=== PATIENT | female | born 1995 | race Caucasian/White ===

== ENCOUNTER 2016-09-25 21:23 | Emergency (ER) | payer MEDICAID ==
--- NOTE | 2016-09-25 22:34 | ER Document Report ---
ED Medical Screen (RME) - General Chief Complaint: Vaginal Itching Stated Complaint: URINARY SYMPTOMS Notes: 20 year old female, c/o vaginal burning and pelvic discomfort for a few days, having unprotected intercourse, denies fever/chills, no N/V. LMP a few days ago. TRAVEL OUTSIDE OF THE [place] IN LAST 30 DAYS: No - Related Data Allergies/Adverse Reactions: No Known Allergies Allergy (Verified 11/25/15 21:24) Past Medical History - Immunizations Hx Diphtheria, Pertussis, Tetanus Vaccination: Yes Physical Exam - Vital signs Vitals: Temp Pulse Resp BP Pulse Ox 97.6 F 74 16 119/56 L 100 09/25/16 22:08 09/25/16 22:08 09/25/16 22:08 09/25/16 22:08 09/25/16 22:08 - General General appearance: Appears well In distress: None Course - Vital Signs Vital signs: Temp Pulse Resp BP Pulse Ox 97.6 F 74 16 119/56 L 100 09/25/16 22:08 09/25/16 22:08 09/25/16 22:08 09/25/16 22:08 09/25/16 22:08
[2016-09-26 00:29] LABS: APPEARANCE,URINE CLOUDY; BILIRUBIN,URINE NEGATIVE (NEGATIVE); GLUCOSE, URINE NEGATIVE (NEGATIVE); KETONES,URINE NEGATIVE (NEGATIVE); LEUKOCYTE ESTERASE,URINE LARGE (NEGATIVE); NITRITE,URINE NEGATIVE (NEGATIVE); PROTEIN,URINE 30 mg/dL (NEGATIVE); URINE SPECIFIC GRAVITY 1.008; UROBILINOGEN,URINE NEGATIVE mg/dL (<2.0)
--- NOTE | 2016-09-26 02:29 | ER Document Report ---
ED GI/ - General Chief Complaint: Vaginal Itching Stated Complaint: URINARY SYMPTOMS Time seen by provider: 02:20 Notes: Patient is a 20 year old female that comes emergency department with chief complaint of vaginal burning and pelvic discomfort for a few days, she is having unprotected intercourse, denies fever/chills, no N/V. LMP a few days ago. She denies any daily medications or medical problems. TRAVEL OUTSIDE OF THE [place] IN LAST 30 DAYS: No - Related Data Allergies/Adverse Reactions: No Known Allergies Allergy (Verified 09/26/16 02:24) Past Medical History - General Information source: Patient - Social History Smoking Status: Never Smoker Frequency of alcohol use: None Drug Abuse: None Lives with: Spouse/Significant other Family History: None - Medical History Medical History: Negative Renal/ Medical History: Denies: Hx Peritoneal Dialysis Surgical Hx: Negative - Immunizations Hx Diphtheria, Pertussis, Tetanus Vaccination: Yes Review of Systems - Review of Systems Constitutional: No symptoms reported EENT: No symptoms reported Cardiovascular: No symptoms reported Respiratory: No symptoms reported Gastrointestinal: See HPI Genitourinary: See HPI Female Genitourinary: See HPI Musculoskeletal: No symptoms reported Skin: No symptoms reported Hematologic/Lymphatic: No symptoms reported Neurological/Psychological: No symptoms reported Physical Exam - Vital signs Vitals: Temp Pulse Resp BP Pulse Ox 97.6 F 74 16 119/56 L 100 09/25/16 22:08 09/25/16 22:08 09/25/16 22:08 09/25/16 22:08 09/25/16 22:08 Interpretation: Normal - General General appearance: Appears well, Alert In distress: None - HEENT Head: Normocephalic, Atraumatic Eyes: Normal Cornea: Normal Extraocular movements intact: Yes Eyelashes: Normal Pupils: PERRL Nasal: Normal Mouth/Lips: Normal Mucous membranes: Normal Pharynx: Normal Neck: Normal - Respiratory Respiratory status: No respiratory distress Chest status: Nontender Breath sounds: Normal Chest palpation: Normal - Cardiovascular Rhythm: Regular Heart sounds: Normal auscultation Murmur: No - Abdominal Inspection: Normal Distension: No distension Bowel sounds: Normal Tenderness: Nontender. No: Tender, Guarding Organomegaly: No organomegaly - Genitourinary Speculum exam: Cervix closed, Vaginal discharge - Small amount of whitish discharge. No: Cervix open Vaginal bleeding: Mild Bimanuel exam: Normal - Back Back: Normal, Nontender - Extremities General upper extremity: Normal inspection, Nontender, Normal color, Normal ROM , Normal temperature General lower extremity: Normal inspection, Nontender, Normal color, Normal ROM , Normal temperature, Normal weight bearing. No: Olivier's sign - Neurological Neuro grossly intact: Yes Cognition: Normal Orientation: AAOx4 [place] Coma Scale Eye Opening: Spontaneous [place] Coma Scale Verbal: Oriented [place] Coma Scale Motor: Obeys Commands Kimmy Coma Scale Total: 15 Speech: Normal Motor strength normal: LUE, RUE, LLE, RLE Sensory: Normal - Psychological Associated symptoms: Normal affect, Normal mood - Skin Skin Temperature: Warm Skin Moisture: Dry Skin Color: Normal Course - Re-evaluation Re-evalutation: Urine contaminated and nonspecific. HCG is negative. Pelvic exam negative Trichomonas, negative yeast, white blood cells, bacteria, blood. Patient has some discharge and some bleeding on exam, no concerning abnormalities otherwise noted. Discussed with patient, she is requesting to leave pending gonorrhea and Chlamydia, giving Rocephin and azithromycin now, treating for UTI and bacterial vaginosis at home. Called patient at [phone] as requested, informed patient that she has positive STD results, patient has already been covered for this, I did discuss with patient that although she has been treated her partner will also need to be treated. - Vital Signs Vital signs: Temp Pulse Resp BP Pulse Ox 97.5 F 66 18 104/62 100 09/26/16 02:55 09/26/16 02:55 09/26/16 02:55 09/26/16 02:55 09/26/16 02:55 - Laboratory Laboratory results interpreted by me: 09/26/16 09/26/16 00:06 02:20 Urine Protein 30 H Urine Blood LARGE H Ur Leukocyte Esterase LARGE H Chlamydia DNA (PCR) DETECTED H Discharge - Discharge Clinical Impression: Vaginal irritation, Dysuria Condition: Stable Disposition: HOME, SELF-CARE Additional Instructions: Examination and workup shows bacterial vaginosis, you have also been treated for pelvic infection. Take Flagyl for bacterial vaginosis, take Keflex antibiotic for urinary tract infection. Return to emergency department for any concerning or worsening symptoms including pain, fever, vomiting, etc. Prescriptions: Cephalexin Monohydrate [Keflex 500 mg Capsule] 500 mg PO BID #10 capsule Metronidazole [Flagyl 500 mg Tablet] 500 mg PO BID #14 tablet Forms: Return to Work Referrals: MERLINE DEJESUS MD [Primary Care Provider] - Follow up as needed
[2016-09-26 03:04] VITALS: BP 104/62
[2016-09-26] MEDS ORDERED: AZITHROMYCIN 250 MG TABLET PO ONE (03:04)
[2016-09-26] MEDS ORDERED: CEFTRIAXONE INJ 250 MG VIAL IM ONE (03:04)
[2016-09-26] MEDS ORDERED: LIDOCAINE 1% INJ-PF (10 MG/ML) 30 ML SDV INFIL ONE (03:04)
[2016-09-26 04:20] LABS: CHLAM PCR DETECTED (NOT DETECT)
== END 2016-09-26 03:20 | disposition home or self-care (01) ==
LOC: ER 21:23
DX: A64 Unspecified sexually transmitted disease (principal); N89.8 Other specified noninflammatory disorders of vagina; R30.0 Dysuria
CPT/HCPCS: 99283; 96372; 87210; 81025; 81001; 87491; 87591; Q0144; J3490; J0696

== ENCOUNTER 2016-10-04 15:56 | Emergency (ER) | payer MEDICAID ==
[2016-10-04 16:04] VITALS: BP 121/70
--- NOTE | 2016-10-04 16:08 | ER Document Report ---
ED Medical Screen (RME) - General Stated Complaint: VAGINAL PROBLEM Notes: 20 yo female c/o vaginal bleeding. recently treated for Chlamydia. concerned she may still have chlamydia. completed antibiotic. not sexually active with that partner. TRAVEL OUTSIDE OF THE [place] IN LAST 30 DAYS: No - Related Data Allergies/Adverse Reactions: No Known Allergies Allergy (Verified 10/04/16 16:05) Past Medical History Endocrine Medical History: Reports: Hx Diabetes Mellitus Type 2 - possible Renal/ Medical History: Denies: Hx Peritoneal Dialysis - Immunizations Hx Diphtheria, Pertussis, Tetanus Vaccination: Yes Physical Exam - Vital signs Vitals: Temp Pulse Resp BP Pulse Ox 97.4 F 75 16 121/70 100 10/04/16 16:02 10/04/16 16:02 10/04/16 16:02 10/04/16 16:02 10/04/16 16:02 Course - Vital Signs Vital signs: Temp Pulse Resp BP Pulse Ox 97.4 F 75 16 121/70 100 10/04/16 16:02 10/04/16 16:02 10/04/16 16:02 10/04/16 16:02 10/04/16 16:02
[2016-10-04 17:50] LABS: CHLAM PCR NOT DETECTED (NOT DETECT)
--- NOTE | 2016-10-04 20:18 | ER Document Report ---
ED General - General Chief Complaint: STD Exposure Stated Complaint: VAGINAL PROBLEM Notes: Patient is a 20-year-old female recently diagnosed with chlamydia after receiving appropriate treatment who presents with concerns that the quality infection may not have cleared. He denies any ongoing dysuria, abdominal pain or flank pain. States that her symptoms resolved 48 hours after receiving antibiotic treatment and have not recurred. States that she is here because she wants to be sure that the infection is gone away. TRAVEL OUTSIDE OF THE [place] IN LAST 30 DAYS: No - Related Data Allergies/Adverse Reactions: No Known Allergies Allergy (Verified 10/04/16 16:05) Home Medications: Current Home Medications No Home Medications 10/04/16 [History] Past Medical History - General Information source: Patient - Social History Smoking Status: Never Smoker Chew tobacco use (# tins/day): No Frequency of alcohol use: None Drug Abuse: None Lives with: Family Family History: Reviewed & Not Pertinent Patient has suicidal ideation: No Patient has homicidal ideation: No Endocrine Medical History: Reports: Hx Diabetes Mellitus Type 2 - possible Renal/ Medical History: Denies: Hx Peritoneal Dialysis - Immunizations Hx Diphtheria, Pertussis, Tetanus Vaccination: Yes Review of Systems - Review of Systems Notes: Constitutional: Negative for fever. HENT: Negative for sore throat. Eyes: Negative for visual changes. Cardiovascular: Negative for chest pain. Respiratory: Negative for shortness of breath. Gastrointestinal: Negative for abdominal pain, vomiting or diarrhea. Genitourinary: Negative for dysuria. Musculoskeletal: Negative for back pain. Skin: Negative for rash. Neurological: Negative for headaches, weakness or numbness. 10 point ROS negative except as marked above and in HPI. Physical Exam - Vital signs Vitals: Temp Pulse Resp BP Pulse Ox 97.4 F 75 16 121/70 100 10/04/16 16:02 10/04/16 16:02 10/04/16 16:02 10/04/16 16:02 10/04/16 16:02 Interpretation: Normal Notes: PHYSICAL EXAMINATION: GENERAL: Well-appearing, well-nourished and in no acute distress. HEAD: Atraumatic, normocephalic. EYES: Pupils equal round and reactive to light, extraocular movements intact, sclera anicteric, conjunctiva are normal. ENT: nares patent, oropharynx clear without exudates. Moist mucous membranes. NECK: Normal range of motion, supple without lymphadenopathy LUNGS: Breath sounds clear to auscultation bilaterally and equal. No wheezes rales or rhonchi. HEART: Regular rate and rhythm without murmurs ABDOMEN: Soft, nontender, normoactive bowel sounds. No guarding, no rebound. No masses appreciated. EXTREMITIES: Normal range of motion, no pitting or edema. No cyanosis. NEUROLOGICAL: No focal neurological deficits. Moves all extremities spontaneously and on command. PSYCH: Normal mood, normal affect. SKIN: Warm, Dry, normal turgor, no rashes or lesions noted. Course - Re-evaluation Re-evalutation: 10/04/16 20:19 Patient presents for concerns of possible ongoing chlamydia infection despite being treated. Her chlamydia screen is negative. She denies any flank pain, dysuria, vaginal bleeding or discharge. I do not suspect an acute left any pathology at this time and she admits that she is strictly here for STD testing. At this time will discharge with return precautions and follow-up recommendations. Verbal discharge instructions given a the bedside and opportunity for questions given. Medication warnings reviewed. Patient is in agreement with this plan and has verbalized understanding of return precautions and the need for primary care follow-up in the next 24-72 hours. - Vital Signs Vital signs: Temp Pulse Resp BP Pulse Ox 97.4 F 75 16 121/70 100 10/04/16 16:02 10/04/16 16:02 10/04/16 16:02 10/04/16 16:02 10/04/16 16:02 Discharge - Discharge Clinical Impression: STD exposure Condition: Good Disposition: HOME, SELF-CARE Additional Instructions: You need to use protection every time you have sex. Failure to do so can result in transmission of infections or unintended . Your chlamydia screen is negative today. All of your partners should be tested and treated as they are also likely to be infected. Please return if you develop abdominal pain, fever, persistent vomiting, or any other symptoms that are concerning to you. Please follow-up at the local health department for STI testing it is free and the same testing we use here. The emergency department is not the appropriate place to come for sexual transmitted infection testing. Address: [address] [place] [address] Hours: Sun-Sun 8am-4pm Thurs 12p-4p Sun 8a-4p
== END 2016-10-04 20:37 | disposition home or self-care (01) ==
LOC: ER 15:56
DX: Z20.2 Contact with and (suspected) exposure to infections with a predominantly sexual mode of transmission (principal)
CPT/HCPCS: 87491; 87591; 99283

== ENCOUNTER 2017-03-09 23:14 | Emergency (ER) | payer SELFPAY ==
--- NOTE | 2017-03-10 00:06 | ER Document Report ---
ED GI/ - General Chief Complaint: Nausea Stated Complaint: NAUSEA Time Seen by Provider: 03/09/17 23:52 Mode of Arrival: Ambulatory Information source: Patient Notes: 21-year-old female presents to ED for nausea with no vomiting 1 week. She states that her she is about a week late for her menstrual cycle. She states her last menstrual cycle was 02/05/2017 and has had several negative test at home but would like to be rechecked. States she had a little bit of pelvic pain with nausea. TRAVEL OUTSIDE OF THE [place] IN LAST 30 DAYS: No - HPI Patient complains to provider of: Pelvic pain. No: Vomiting Onset: Last week Timing/Duration: Intermittent Quality of pain: Cramping Severity at maximum: Moderate Severity in ED: None Pain Level: Denies Location: Pelvis Vaginal bleeding (Compared to normal period): None LMP: 02/05/2017 Associated symptoms: Nausea. denies: Vomiting Exacerbated by: Denies Relieved by: Denies Similar symptoms previously: Yes Recently seen / treated by doctor: No - Related Data Allergies/Adverse Reactions: No Known Allergies Allergy (Verified 10/04/16 16:05) Past Medical History - General Information source: Patient - Social History Smoking Status: Current Every Day Smoker Cigarette use (# per day): Yes - Pack per day Chew tobacco use (# tins/day): No Smoking Education Provided: Yes - Less than 2 minutes Frequency of alcohol use: Social - States she was drinking every week but has not drank since the middle of January Drug Abuse: None Occupation: state patrol officer Lives with: Spouse/Significant other Family History: CAD, COPD, CVA, DM, Hyperlipidemia, Hypertension, Malignancy. denies: Thyroid Disfunction Patient has suicidal ideation: No Patient has homicidal ideation: No - Past Medical History Cardiac Medical History: Reports: None Pulmonary Medical History: Reports: None EENT Medical History: Reports: None Neurological Medical History: Reports: None Endocrine Medical History: Reports: Hx Diabetes Mellitus Type 2 - possible Renal/ Medical History: Reports: None Malignancy Medical History: Reports: None GI Medical History: Reports: None Musculoskeltal Medical History: Reports None Skin Medical History: Reports None Psychiatric Medical History: Reports: None Traumatic Medical History: Reports: None Infectious Medical History: Reports: None Surgical Hx: Negative Past Surgical History: Reports: None - Immunizations Immunizations up to date: Yes Hx Diphtheria, Pertussis, Tetanus Vaccination: Yes Review of Systems - Review of Systems Constitutional: No symptoms reported EENT: No symptoms reported Cardiovascular: No symptoms reported Respiratory: No symptoms reported Gastrointestinal: Nausea. denies: Abdominal pain, Vomiting Genitourinary: No symptoms reported Female Genitourinary: Last menstrual period Musculoskeletal: No symptoms reported Skin: No symptoms reported Hematologic/Lymphatic: No symptoms reported Neurological/Psychological: No symptoms reported Physical Exam - Vital signs Vitals: Temp Pulse Resp BP Pulse Ox 97.7 F 81 18 124/72 98 03/09/17 23:26 03/09/17 23:26 03/09/17 23:26 03/09/17 23:26 03/09/17 23:26 Interpretation: Normal - General General appearance: Appears well, Alert - HEENT Head: Normocephalic, Atraumatic Eyes: Normal Pupils: PERRL - Respiratory Respiratory status: No respiratory distress Chest status: Nontender Breath sounds: Normal Chest palpation: Normal - Cardiovascular Rhythm: Regular Heart sounds: Normal auscultation Murmur: No - Abdominal Inspection: Normal Distension: No distension Bowel sounds: Normal Tenderness: Nontender Organomegaly: No organomegaly - Back Back: Normal, Nontender - Extremities General upper extremity: Normal inspection, Nontender, Normal color, Normal ROM , Normal temperature General lower extremity: Normal inspection, Nontender, Normal color, Normal ROM , Normal temperature, Normal weight bearing. No: Olivier's sign - Neurological Neuro grossly intact: Yes Cognition: Normal Orientation: AAOx4 Kimmy Coma Scale Eye Opening: Spontaneous [place] Coma Scale Verbal: Oriented Kimmy Coma Scale Motor: Obeys Commands [place] Coma Scale Total: 15 Speech: Normal Motor strength normal: LUE, RUE, LLE, RLE Sensory: Normal - Psychological Associated symptoms: Normal affect, Normal mood - Skin Skin Temperature: Warm Skin Moisture: Dry Skin Color: Normal Course - Vital Signs Vital signs: Temp Pulse Resp BP Pulse Ox 98.7 F 82 18 107/59 L 100 03/10/17 01:27 03/10/17 01:27 03/10/17 01:27 03/10/17 01:03/10/17 01:27 - Laboratory Laboratory results interpreted by me: 03/10/17 00:00 Urine Urobilinogen 2.0 H Ur Leukocyte Esterase TRACE H Discharge - Discharge Clinical Impression: Nausea, late mentral cycle Condition: Stable Disposition: HOME, SELF-CARE Additional Instructions: Menstrual cycle is late but you are not . You UA is negative. Use vitamin B6 for your nausea FOLLOW-UP CARE: If you have been referred to a physician for follow-up care, call the physician s office for an appointment as you were instructed or within the next two days. If you experience worsening or a significant change in your symptoms, notify the physician immediately or return to the Emergency Department at any time for re-evaluation.
[2017-03-10 00:35] LABS: AMORPHOUS SEDIMENT,URINE TRACE /HPF; APPEARANCE,URINE CLOUDY; BILIRUBIN,URINE NEGATIVE (NEGATIVE); GLUCOSE, URINE NEGATIVE (NEGATIVE); KETONES,URINE NEGATIVE (NEGATIVE); LEUKOCYTE ESTERASE,URINE TRACE (NEGATIVE); NITRITE,URINE NEGATIVE (NEGATIVE); PROTEIN,URINE NEGATIVE (NEGATIVE); URINE SPECIFIC GRAVITY 1.028
[2017-03-10 01:28] VITALS: BP 107/59
== END 2017-03-10 01:28 | disposition home or self-care (01) ==
LOC: ER 23:14
DX: R11.0 Nausea (principal); R10.2 Pelvic and perineal pain; F17.210 Nicotine dependence, cigarettes, uncomplicated; Z71.6 Tobacco abuse counseling
CPT/HCPCS: 81001; 81025; 99283

== ENCOUNTER 2017-10-10 16:41 | Outpatient (CLI) | payer OTHER ==
[2017-10-10 17:46] LABS: APPEARANCE,URINE CLOUDY; BILIRUBIN,URINE NEGATIVE (NEGATIVE); COLOR,URINE YELLOW; GLUCOSE, URINE NEGATIVE (NEGATIVE); KETONES,URINE NEGATIVE (NEGATIVE); LEUKOCYTE ESTERASE,URINE LARGE (NEGATIVE); NITRITE,URINE NEGATIVE (NEGATIVE); PROTEIN,URINE 30 mg/dL (NEGATIVE); URINE SPECIFIC GRAVITY 1.013
[2017-10-10 17:55] LABS: URINE AMPHETAMINES SCREEN NEGATIVE; URINE BARBITURATES SCREEN NEGATIVE; URINE BENZODIAZEPINES SCREEN NEGATIVE; URINE COCAINE SCREEN NEGATIVE; URINE MARIJUANA (THC) SCREEN NEGATIVE; URINE METHADONE SCREEN NEGATIVE; URINE PHENCYCLIDINE SCREEN NEGATIVE
[2017-10-10 18:44] LABS: ABSOLUTE EOSINOPHILS # (AUTO) 0.1 10^3/uL (0.0-0.6); ABSOLUTE LYMPHOCYTES (AUTO) 1.7 10^3/uL (0.5-4.7); ABSOLUTE MONOCYTES (AUTO) 0.5 10^3/uL (0.1-1.4); ABSOLUTE NEUT (AUTO) 8.1 10^3/uL (1.7-8.2); BASOPHILS % (AUTO) 0.3 % (0-2); EOSINOPHILS % (AUTO) 0.6 % (0-6); HEMATOCRIT 26.7 % (36.0-47.0); HEMOGLOBIN 8.9 g/dL (12.0-15.5); LYMPHOCYTES % (AUTO) 16.5 % (13-45); MEAN CORPUSCULAR HEMOGLOBIN 24.3 pg (27.0-33.4); MEAN CORPUSCULAR HGB CONC 33.5 g/dL (32.0-36.0); MEAN CORPUSCULAR VOLUME 72 fl (80-97); MONOCYTES % (AUTO) 4.4 % (3-13); PLATELET COUNT 211 10^3/uL (150-450); RED BLOOD COUNT 3.69 10^6/uL (3.72-5.28); RED CELL DISTRIBUTION WIDTH 15.5 % (11.5-14.0); SEGMENTED NEUTROPHILS % (AUTO) 78.2 % (42-78); TOTAL CELLS COUNTED % (AUTO) 100 %; WHITE BLOOD COUNT 10.4 10^3/uL (4.0-10.5)
[2017-10-10 19:44] LABS: RUBELLA INTERPRETATION POSITIVE
[2017-10-10 19:59] VITALS: BP 118/67
--- NOTE | 2017-10-10 20:44 | Non Stress Test Report ---
Non Stress Test Datetime Report Generated by CPN: 10/10/2017 20:44 DEMOGRAPHIC EGA NST: 35.2 EGA NST: 35.2 INDICATION Indication for Study: Ordered by Provider Indication for Study: Ordered by Provider VITAL SIGNS Temperature - NST: 98.6 MONITORING Monitor Explained: Monitor Explained; Test Explained; Patient Verbalized Understanding Monitor Explained: Monitor Explained; Test Explained; Patient Verbalized Understanding Time on Monitor: 10/10/2017 19:40 Time on Monitor: 10/10/2017 16:59 Time off Monitor: 10/10/2017 20:00 NST Duration: 20 NST INTERVENTIONS NST Interventions: PO Hydration NST Interventions: PO Hydration; Reposition Patient Physician Notified NST: Dr. Nichole BABY A: [id number] BABY A Movement : Present Contraction Frequency : none FHR Baseline : 130 Accelerations : 15X15 Decelerations : None Variability : Moderate 6-25bpm NST Review: Meets Criteria for Reactive NST NST Review and Verified By : K Iliana RN NST Results: Reactive NST REPORT Report Trigger: Send Report
[2017-10-12 07:41] LABS: HEPATITIS C VIRUS AB <0.1 s/co ratio (0.0-0.9)
[2017-10-12 08:09] LABS: HEPATITS B SURFACE ANTIGEN Negative (Negative)
== END 2017-10-10 20:29 | disposition home or self-care (01) ==
LOC: LC 16:41
PROVIDERS: ATTEND Obstetrics & Gynecology Gynecology
PROC: 4A1HXCZ Monitoring of Products of Conception, Cardiac Rate, External Approach (ICD-10-PCS; principal; 2017-10-10)
DX: O36.8130 Decreased fetal movements, third trimester, not applicable or unspecified (principal); O26.893 Other specified pregnancy related conditions, third trimester; R10.9 Unspecified abdominal pain; Z3A.35 35 weeks gestation of pregnancy
CPT/HCPCS: 86900; 86901; 36415; 87086; 86850; 85025; 87088; 86762; 86592; 81001; 87340; 86701; 87186; 80307; 86803; 86804; 59025; J2790